=== PATIENT | male | born 1990 | race Asian ===

== ENCOUNTER 2019-04-25 16:52 | Emergency (ER) | payer BC, OTHER ==
[~2019-04-25] VITALS: Ht 180.3 cm; Wt 77.1 kg
[2019-04-25 17:45] VITALS: BP 124/87
[2019-04-25] MEDS ORDERED: cefTRIAXone SOD 1,000 MG VL IM ONE (18:15)
== END 2019-04-25 18:22 | disposition home or self-care (01) ==
LOC: ER 16:52
DX: J20.9 Acute bronchitis, unspecified (principal); J02.9 Acute pharyngitis, unspecified
CPT/HCPCS: 71046; 96372; 99283; J0696